=== PATIENT | female | born 1945 | race Caucasian/White ===

== ENCOUNTER 2017-05-10 22:29 | Inpatient (IN) ==
--- NOTE | 2017-05-10 22:52 | Emergency Department Note ---
Disposition Clinical Impression: At risk for self care deficit UTI (urinary tract infection) Qualifiers: Urinary tract infection type: acute cystitis Hematuria presence: with hematuria Qualified Code(s): N30.01 - Acute cystitis with hematuria Disposition: Admitted As Inpatient Condition: Good Time of Disposition: 03:12 General Adult HPI - General Chief complaint: ED General Medical Stated complaint: Possible UTI Time Seen by Provider: 05/10/17 22:41 Nursing Notes Reviewed: Yes Vital Signs Reviewed: Yes - History of Present Illness HPI Narrative: 72yoF arrives via squad with c/o possible UTI and left side weakness. Squad mentions patient had not been ambulatory at scene, they had been called by [facility] fire department. The patient's sons are also here and she reviewed the history. They report there and had contacted one of them when she was unable to reach the patient by phone. The patient's son states that he lives with her , and his weakness had started approximately 4 days ago. Patient's family deny any history of syncopal episodes, fall, trauma, voice changes. - Related Data Allergies Allergy/AdvReac Type Severity Reaction Status Date / Time No Known Allergies Allergy Verified 05/11/17 00:47 All systems ED: reviewed and negative except as stated. Constitutional: Denies: fever, chills Eyes: Denies: eye pain ENT ED: Denies: ear pain Cardiovascular: Denies: chest pain Respiratory: Denies: dyspnea Gastrointestinal: Denies: nausea, vomiting Musculoskeletal: Denies: neck pain Integumentary: Denies: rash Endocrine: Denies: fatigue Hematological/Lymphatic: Denies: easy bleeding Allergic/Immunologic: Denies: facial swelling Physical Exam - General Limitations: altered mental status General appearance: alert, in no apparent distress, anxious - Head Head exam: normocephalic - Eye Eye exam: Present: PERRL, EOMI. Absent: conjunctival injection - ENT ENT exam: normal oropharynx, mucous membranes moist, normal external ear exam - Neck Neck exam: Present: full ROM - Chest Chest inspection: Present: symmetric chest wall rise - Respiratory Respiratory exam: Present: normal lung sounds bilaterally. Absent: respiratory distress - Cardiovascular Cardiovascular exam: Present: regular rate, normal rhythm - Abdominal Exam Abdominal exam: Present: soft, Non-Tender - Rectal Exam Decorating Machine Operator present during exam: Yes (Yeny Garza RN) Rectal exam: Present: other (skin tear wound over left buttock [id number]) - Extremities Exam Extremities exam: Present: normal capillary refill - Back Exam Back exam: Present: full ROM - Neurological Exam Neurological exam: Present: alert, oriented X3, CN II-XII intact - Expanded Neurological Exam Patient oriented to: Present: person, place, time Speech: Present: fluid speech Cranial nerves: EOM function (II, III, IV, ): Normal, facial sensation (V): Normal, facial palsy (VII): Normal, gag reflex (IX): Normal, spinal accessory function (XI): Normal, tongue deviation (XII): Normal Cerebellar function: finger to nose: Normal Motor strength - LUE: 3/5 Motor strength - RUE: 4/5 Motor strength - LLE: 3/5 Motor strength - RLE: 3/5 Sensory exam upper extremity: light touch: Normal, pin prick: Normal Sensory exam lower extremity: light touch: Normal, pin prick: Normal Coma Scale Eye Opening: Spontaneous Coma Scale Motor Response: Obeys Commands Coma Scale Verbal Response: Oriented Coma Scale Total: 15 - Psychiatric Psychiatric exam: Present: normal affect, normal mood - Skin Skin exam: Present: warm, dry, intact, normal color. Absent: rash, cyanosis, diaphoresis Course Course Narrative: 72-year-old female arrives via squad. Squad reports that patient was unable to ambulate, Accu-Chek was within normal limits. Patient seen and examined. She answers only a few questions, however she is alert and oriented 3. Her closer so with feces and urine. She complains of some pain over her buttocks, on examination she does have some ulcerating sores, and excoriations over her right buttock. She also has some noticeable left upper extremity weakness compared to her right. She has no sensory deficits. Her speech appears normal. No facial asymmetry. Onset Workup initiated. - Reevaluation(s) Reevaluation #1: Patient's two sons are now bedside. We did have a discussion with them regarding the patient. Son#1 reports: He was contacted by his aunt who was concerned for the patient when the aunt was unable to reach the patient by phone. So #1 reports that he had called squad. He also mentions that the patient is not herself, she is usually able to walk and talk without difficulty. He mentions he sees her his mom approximately one time a month. Son#2 reports: He lives with patient. He describes patient has typically been self-sufficient and able to care for herself. He does mention the patient has become more confused with decreased activity over the past 4 days. He states the last time he saw his mom well was approximately 4 days ago. He mentions he has not helped with any of her care for activities of daily living despite the fact that he mentions that she has become more tired and confused over this past week. Time: 02:40 Reevaluation #2: Patient's urinalysis does show evidence of urinary tract infection. She also has an elevated creatine kinase and WBC. She has a open wound on her left buttock with some adjacent skin breakdown. No active drainage, no evidence of cellulitis. Discussed patient with Dr. Nath who had face time with patient and agreed with work up and dec to admit for UTI and weakness. Patient was discussed with and accepted by hospitalist Dr. Morales. Time: 02:55 Vital Signs Temperature 98.0 F 05/10/17 22:31 Pulse Rate 103 05/10/17 22:31 Respiratory Rate 16 05/10/17 22:31 Blood Pressure 183/81 05/10/17 22:31 O2 Sat by Pulse Oximetry 97 05/10/17 22:31 Temperature 98.0 F 05/10/17 22:31 Pulse Rate 107 05/11/17 02:49 Respiratory Rate 20 05/11/17 04:03 Blood Pressure 198/89 05/11/17 04:03 O2 Sat by Pulse Oximetry 95 05/11/17 02:49 Oxygen Delivery Oxygen Delivery Room Air Medical Decision Making - [facility] Narrative Medical decision making narrative: Patient presented by squad with reported UTI, recent weakness, and he request activity, left-sided weakness. Family had talked with patient's family and the period that her symptoms were not acute in onset, but had been occurring over the past 4 days. Pt was not a candidate for TPA. On initial presentation, patient looked disheveled, spelled of urine and is covered with feces. I saw no evidence of any acute injury. She did have a open wound on her right buttock , with skin breakdown. Workup showed elevation of white count, urinalysis consistent with urinary tract infection. She also had an elevated CK. She also had notable tenderness over the muscles of her back, and extremities. On exam she did have some possible left upper extremity weakness. NIH 4. Elevated troponin, no acute findings on EKG, and no chest pain. I did discuss patient with Dr. Graham also had the stomach patient and agreed with workup and evaluation. Patient was accepted by hospitalist for further evaluation of UTI and weakness. NIH Stroke Scale/Score (NIHSS) from [employer] on 05/11/2017 All calculations should be rechecked by clinician prior to use RESULT SUMMARY: 4 points NIH Stroke Scale INPUTS: 1A: Level of consciousness > 0 = Alert; keenly responsive 1B: Ask month and age > 0 = Both questions right 1C: 'Blink eyes' & 'squeeze hands' > 0 = Performs both tasks 2: Horizontal extraocular movements > 0 = Normal 3: Visual sanchez > 0 = No visual loss 4: Facial palsy > 0 = Normal symmetry 5A: Left arm motor drift > 1 = Drift, but doesn't hit bed 5B: Right arm motor drift > 0 = No drift for 10 seconds 6A: Left leg motor drift > 3 = No effort against gravity 6B: Right leg motor drift > 0 = No drift for 5 seconds 7: Limb Ataxia > 0 = No ataxia 8: Sensation > 0 = Normal; no sensory loss 9: Language/aphasia > 0 = Normal; no aphasia 10: Dysarthria > 0 = Normal 11: Extinction/inattention > 0 = No abnormality All Lab Results (24 Hours) 05/10/17 05/10/17 05/11/17 Range/Units 02:46 02:46 01:05 WBC (4.3-11.1) K/mcL RBC (3.82-4.97) M/mcL Hgb (11.5-15.4) g/dL Hct (35.3-44.9) % MCV (83.0-100.0) fL MCH (28.0-33.3) pg MCHC (31.6-35.5) g/dL RDW (11.5-14.5) % Plt Count (140-400) K/mcL MPV (9.4-12.4) fL Immature Gran % (0-4) % Seg Neutrophils % % Lymphocytes % % Monocytes % % Eosinophils % % Basophils % % Neutrophils # (1.6-8.9) K/mcL Lymphocytes # (0.6-4.6) K/mcL Monocytes # (0.0-1.3) K/mcL Eosinophils # (0.0-0.6) K/mcL Basophils # (0.0-0.2) K/mcL Immature Plt Fraction (1.1-6.1) % PT (9.4-12.1) Seconds INR APTT (26.0-36.0) Seconds Sodium (136-145) mEq/L Potassium (3.5-4.5) mEq/L Chloride (98-109) mEq/L Carbon Dioxide (19-29) mEq/L BUN (7-20) mg/dL Creatinine (0.57-1.11) mg/dL Est GFR ( Amer) (> 60) Est GFR (Non-Af Amer) (> 60) BUN/Creatinine Ratio (6-26) Glucose (70-99) mg/dL Calculated Osmolality (280-300) Lactic Acid (0.5-2.2) mmol/L Calcium (8.6-10.8) mg/dL Phosphorus (2.3-4.7) mg/dL Magnesium (1.6-2.6) mg/dL Total Bilirubin (0.2-1.2) mg/dL Direct Bilirubin (0.0-0.5) mg/dL Indirect Bilirubin (0.0-1.2) mg/dL AST (5-34) Units/L ALT (0-55) Units/L Alkaline Phosphatase (38-126) Units/L Ammonia (18-72) mcmol/L Creatine Kinase (29-168) Units/L Troponin I 0.04 H* (0-0.03) ng/mL Serum Total Protein (6.0-8.3) g/dL Albumin (3.5-5.0) g/dL Globulin (2.4-3.5) g/dL Albumin/Globulin Ratio (1.1-2.2) Triglycerides (< 150) mg/dL Cholesterol (< 200) mg/dL LDL Cholesterol, Calc (0-99) mg/dL VLDL Cholesterol, Calc (< 31) mg/dL HDL Cholesterol (40-59) mg/dL Cholesterol/HDL Ratio (0-4.9) Urine Color Yellow (Yellow) Urine Clarity Cloudy A (Clear) Urine pH 5.5 (5.0-8.0) pH Units Ur Specific [place] 1.028 H (1.010-1.025) Urine Protein Trace (Neg-Trace) mg/dL Urine Glucose (UA) Normal (Normal) mg/dL Urine Ketones Trace H (Negative) mg/dL Urine Blood Trace H (Negative) Urine Nitrite Positive A (Negative) Urine Bilirubin Negative (Negative) Urine Urobilinogen Normal (Normal) mg/dL Ur Leukocyte Esterase Small H (Negative) Urine Microscopic RBC 0-3 (0-3) per hpf Urine Microscopic WBC 5-15 H (0-3) per hpf Ur Squamous Epith Cells Few (None-Few) per lpf Ur Culture Indicated? YES A (NO) Urine Opiates Screen Negative (Lmnohw=893) ng/mL Ur Barbiturates Screen Negative (Aqckib=575) ng/mL Ur Phencyclidine Scrn Negative (Cutoff=25) ng/mL Ur Amphetamines Screen Negative (Dgrmul=7233) ng/mL U Benzodiazepines Scrn Negative (Alcmuw=539) ng/mL Urine Cocaine Screen Negative (Cutoff= 300) ng/mL U Marijuana (THC) Screen Negative (Cutoff = 50) ng/mL Ethyl Alcohol (0-10) mg/dL 05/11/17 05/11/17 05/11/17 Range/Units 01:05 01:23 01:23 WBC (4.3-11.1) K/mcL RBC (3.82-4.97) M/mcL Hgb (11.5-15.4) g/dL Hct (35.3-44.9) % MCV (83.0-100.0) fL MCH (28.0-33.3) pg MCHC (31.6-35.5) g/dL RDW (11.5-14.5) % Plt Count (140-400) K/mcL MPV (9.4-12.4) fL Immature Gran % (0-4) % Seg Neutrophils % % Lymphocytes % % Monocytes % % Eosinophils % % Basophils % % Neutrophils # (1.6-8.9) K/mcL Lymphocytes # (0.6-4.6) K/mcL Monocytes # (0.0-1.3) K/mcL Eosinophils # (0.0-0.6) K/mcL Basophils # (0.0-0.2) K/mcL Immature Plt Fraction (1.1-6.1) % PT (9.4-12.1) Seconds INR APTT (26.0-36.0) Seconds Sodium (136-145) mEq/L Potassium (3.5-4.5) mEq/L Chloride (98-109) mEq/L Carbon Dioxide (19-29) mEq/L BUN (7-20) mg/dL Creatinine (0.57-1.11) mg/dL Est GFR ( Amer) (> 60) Est GFR (Non-Af Amer) (> 60) BUN/Creatinine Ratio (6-26) Glucose (70-99) mg/dL Calculated Osmolality (280-300) Lactic Acid 1.7 (0.5-2.2) mmol/L Calcium (8.6-10.8) mg/dL Phosphorus (2.3-4.7) mg/dL Magnesium (1.6-2.6) mg/dL Total Bilirubin (0.2-1.2) mg/dL Direct Bilirubin (0.0-0.5) mg/dL Indirect Bilirubin (0.0-1.2) mg/dL AST (5-34) Units/L ALT (0-55) Units/L Alkaline Phosphatase (38-126) Units/L Ammonia 23 (18-72) mcmol/L Creatine Kinase 1558 H (29-168) Units/L Troponin I (0-0.03) ng/mL Serum Total Protein (6.0-8.3) g/dL Albumin (3.5-5.0) g/dL Globulin (2.4-3.5) g/dL Albumin/Globulin Ratio (1.1-2.2) Triglycerides (< 150) mg/dL Cholesterol (< 200) mg/dL LDL Cholesterol, Calc (0-99) mg/dL VLDL Cholesterol, Calc (< 31) mg/dL HDL Cholesterol (40-59) mg/dL Cholesterol/HDL Ratio (0-4.9) Urine Color (Yellow) Urine Clarity (Clear) Urine pH (5.0-8.0) pH Units Ur Specific [place] (1.010-1.025) Urine Protein (Neg-Trace) mg/dL Urine Glucose (UA) (Normal) mg/dL Urine Ketones (Negative) mg/dL Urine Blood (Negative) Urine Nitrite (Negative) Urine Bilirubin (Negative) Urine Urobilinogen (Normal) mg/dL Ur Leukocyte Esterase (Negative) Urine Microscopic RBC (0-3) per hpf Urine Microscopic WBC (0-3) per hpf Ur Squamous Epith Cells (None-Few) per lpf Ur Culture Indicated? (NO) Urine Opiates Screen (Miibnh=782) ng/mL Ur Barbiturates Screen (Rghycr=944) ng/mL Ur Phencyclidine Scrn (Cutoff=25) ng/mL Ur Amphetamines Screen (Cjfebz=4716) ng/mL U Benzodiazepines Scrn (Duizbh=937) ng/mL Urine Cocaine Screen (Cutoff= 300) ng/mL U Marijuana (THC) Screen (Cutoff = 50) ng/mL Ethyl Alcohol (0-10) mg/dL 05/11/17 05/11/17 05/11/17 Range/Units 01:23 01:23 01:23 WBC 17.8 H (4.3-11.1) K/mcL RBC 4.22 (3.82-4.97) M/mcL Hgb 11.1 L (11.5-15.4) g/dL Hct 35.4 (35.3-44.9) % MCV 83.9 (83.0-100.0) fL MCH 26.3 L (28.0-33.3) pg MCHC 31.4 L (31.6-35.5) g/dL RDW 18.1 H (11.5-14.5) % Plt Count 364 (140-400) K/mcL MPV 10.5 (9.4-12.4) fL Immature Gran % 1.1 (0-4) % Seg Neutrophils % 82.7 % Lymphocytes % 7.0 % Monocytes % 8.5 % Eosinophils % 0.2 % Basophils % 0.5 % Neutrophils # 14.7 H (1.6-8.9) K/mcL Lymphocytes # 1.3 (0.6-4.6) K/mcL Monocytes # 1.5 H (0.0-1.3) K/mcL Eosinophils # 0.0 (0.0-0.6) K/mcL Basophils # 0.1 (0.0-0.2) K/mcL Immature Plt Fraction 4.6 (1.1-6.1) % PT 13.5 H (9.4-12.1) Seconds INR 1.2 APTT 25.4 L (26.0-36.0) Seconds Sodium 146 H (136-145) mEq/L Potassium 3.4 L (3.5-4.5) mEq/L Chloride 110 H (98-109) mEq/L Carbon Dioxide 25 (19-29) mEq/L BUN 38 H (7-20) mg/dL Creatinine 1.08 (0.57-1.11) mg/dL Est GFR ( Amer) > 60 (> 60) Est GFR (Non-Af Amer) 50 L (> 60) BUN/Creatinine Ratio 35 H (6-26) Glucose 138 H (70-99) mg/dL Calculated Osmolality 313 H (280-300) Lactic Acid (0.5-2.2) mmol/L Calcium 9.8 (8.6-10.8) mg/dL Phosphorus (2.3-4.7) mg/dL Magnesium (1.6-2.6) mg/dL Total Bilirubin 0.9 (0.2-1.2) mg/dL Direct Bilirubin 0.4 (0.0-0.5) mg/dL Indirect Bilirubin 0.5 (0.0-1.2) mg/dL AST 49 H (5-34) Units/L ALT 31 (0-55) Units/L Alkaline Phosphatase 73 (38-126) Units/L Ammonia (18-72) mcmol/L Creatine Kinase (29-168) Units/L Troponin I (0-0.03) ng/mL Serum Total Protein 8.1 (6.0-8.3) g/dL Albumin 3.6 (3.5-5.0) g/dL Globulin 4.5 H (2.4-3.5) g/dL Albumin/Globulin Ratio 0.8 L (1.1-2.2) Triglycerides (< 150) mg/dL Cholesterol (< 200) mg/dL LDL Cholesterol, Calc (0-99) mg/dL VLDL Cholesterol, Calc (< 31) mg/dL HDL Cholesterol (40-59) mg/dL Cholesterol/HDL Ratio (0-4.9) Urine Color (Yellow) Urine Clarity (Clear) Urine pH (5.0-8.0) pH Units Ur Specific [place] (1.010-1.025) Urine Protein (Neg-Trace) mg/dL Urine Glucose (UA) (Normal) mg/dL Urine Ketones (Negative) mg/dL Urine Blood (Negative) Urine Nitrite (Negative) Urine Bilirubin (Negative) Urine Urobilinogen (Normal) mg/dL Ur Leukocyte Esterase (Negative) Urine Microscopic RBC (0-3) per hpf Urine Microscopic WBC (0-3) per hpf Ur Squamous Epith Cells (None-Few) per lpf Ur Culture Indicated? (NO) Urine Opiates Screen (Azvdxc=790) ng/mL Ur Barbiturates Screen (Yxwuit=454) ng/mL Ur Phencyclidine Scrn (Cutoff=25) ng/mL Ur Amphetamines Screen (Zckbhy=4632) ng/mL U Benzodiazepines Scrn (Bagvrv=483) ng/mL Urine Cocaine Screen (Cutoff= 300) ng/mL U Marijuana (THC) Screen (Cutoff = 50) ng/mL Ethyl Alcohol < 10 (0-10) mg/dL 05/11/17 05/11/17 Range/Units 03:24 Unknown WBC (4.3-11.1) K/mcL RBC (3.82-4.97) M/mcL Hgb (11.5-15.4) g/dL Hct (35.3-44.9) % MCV (83.0-100.0) fL MCH (28.0-33.3) pg MCHC (31.6-35.5) g/dL RDW (11.5-14.5) % Plt Count (140-400) K/mcL MPV (9.4-12.4) fL Immature Gran % (0-4) % Seg Neutrophils % % Lymphocytes % % Monocytes % % Eosinophils % % Basophils % % Neutrophils # (1.6-8.9) K/mcL Lymphocytes # (0.6-4.6) K/mcL Monocytes # (0.0-1.3) K/mcL Eosinophils # (0.0-0.6) K/mcL Basophils # (0.0-0.2) K/mcL Immature Plt Fraction (1.1-6.1) % PT (9.4-12.1) Seconds INR APTT (26.0-36.0) Seconds Sodium (136-145) mEq/L Potassium (3.5-4.5) mEq/L Chloride (98-109) mEq/L Carbon Dioxide (19-29) mEq/L BUN (7-20) mg/dL Creatinine (0.57-1.11) mg/dL Est GFR ( Amer) (> 60) Est GFR (Non-Af Amer) (> 60) BUN/Creatinine Ratio (6-26) Glucose (70-99) mg/dL Calculated Osmolality (280-300) Lactic Acid 2.4 H (0.5-2.2) mmol/L Calcium (8.6-10.8) mg/dL Phosphorus 3.6 (2.3-4.7) mg/dL Magnesium 2.4 (1.6-2.6) mg/dL Total Bilirubin (0.2-1.2) mg/dL Direct Bilirubin (0.0-0.5) mg/dL Indirect Bilirubin (0.0-1.2) mg/dL AST (5-34) Units/L ALT (0-55) Units/L Alkaline Phosphatase (38-126) Units/L Ammonia (18-72) mcmol/L Creatine Kinase (29-168) Units/L Troponin I (0-0.03) ng/mL Serum Total Protein (6.0-8.3) g/dL Albumin (3.5-5.0) g/dL Globulin (2.4-3.5) g/dL Albumin/Globulin Ratio (1.1-2.2) Triglycerides 105 (< 150) mg/dL Cholesterol 208 H (< 200) mg/dL LDL Cholesterol, Calc 137 H (0-99) mg/dL VLDL Cholesterol, Calc 21 (< 31) mg/dL HDL Cholesterol 50 (40-59) mg/dL Cholesterol/HDL Ratio 4.2 (0-4.9) Urine Color (Yellow) Urine Clarity (Clear) Urine pH (5.0-8.0) pH Units Ur Specific [place] (1.010-1.025) Urine Protein (Neg-Trace) mg/dL Urine Glucose (UA) (Normal) mg/dL Urine Ketones (Negative) mg/dL Urine Blood (Negative) Urine Nitrite (Negative) Urine Bilirubin (Negative) Urine Urobilinogen (Normal) mg/dL Ur Leukocyte Esterase (Negative) Urine Microscopic RBC (0-3) per hpf Urine Microscopic WBC (0-3) per hpf Ur Squamous Epith Cells (None-Few) per lpf Ur Culture Indicated? (NO) Urine Opiates Screen (Hmzfex=846) ng/mL Ur Barbiturates Screen (Ttjhke=642) ng/mL Ur Phencyclidine Scrn (Cutoff=25) ng/mL Ur Amphetamines Screen (Fdhxxd=5763) ng/mL U Benzodiazepines Scrn (Sqnvbp=367) ng/mL Urine Cocaine Screen (Cutoff= 300) ng/mL U Marijuana (THC) Screen (Cutoff = 50) ng/mL Ethyl Alcohol (0-10) mg/dL Chest X-Ray 05/10/17 22:43 IMPRESSION: Elevation or eventration of right hemidiaphragm is present. Borderline cardiomegaly. Otherwise no acute cardiopulmonary findings. D/ / Les Ahn MD / Les Ahn MD Interpreting Provider: Les Ahn MD Head CT 05/11/17 02:28 IMPRESSION: 1. No acute intracranial abnormality. 2. 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 3. Severe chronic microvascular white matter ischemic disease. D/ / Tristin Dejesus MD / Tristin Dejesus MD Interpreting Provider: Tristin Dejesus MD - Lab Data Lab results reviewed: Yes I reviewed the patient's lab results. Result diagrams: 05/11/17 01:23 05/11/17 01:23 Lab Results 05/10/17 05/10/17 05/11/17 Range/Units 02:46 02:46 01:05 WBC (4.3-11.1) K/mcL RBC (3.82-4.97) M/mcL Hgb (11.5-15.4) g/dL Hct (35.3-44.9) % MCV (83.0-100.0) fL MCH (28.0-33.3) pg MCHC (31.6-35.5) g/dL RDW (11.5-14.5) % Plt Count (140-400) K/mcL MPV (9.4-12.4) fL Immature Gran % (0-4) % Seg Neutrophils % % Lymphocytes % % Monocytes % % Eosinophils % % Basophils % % Neutrophils # (1.6-8.9) K/mcL Lymphocytes # (0.6-4.6) K/mcL Monocytes # (0.0-1.3) K/mcL Eosinophils # (0.0-0.6) K/mcL Basophils # (0.0-0.2) K/mcL Immature Plt Fraction (1.1-6.1) % PT (9.4-12.1) Seconds INR APTT (26.0-36.0) Seconds Sodium (136-145) mEq/L Potassium (3.5-4.5) mEq/L Chloride (98-109) mEq/L Carbon Dioxide (19-29) mEq/L BUN (7-20) mg/dL Creatinine (0.57-1.11) mg/dL Est GFR ( Amer) (> 60) Est GFR (Non-Af Amer) (> 60) BUN/Creatinine Ratio (6-26) Glucose (70-99) mg/dL Calculated Osmolality (280-300) Lactic Acid (0.5-2.2) mmol/L Calcium (8.6-10.8) mg/dL Total Bilirubin (0.2-1.2) mg/dL Direct Bilirubin (0.0-0.5) mg/dL Indirect Bilirubin (0.0-1.2) mg/dL AST (5-34) Units/L ALT (0-55) Units/L Alkaline Phosphatase (38-126) Units/L Ammonia (18-72) mcmol/L Creatine Kinase (29-168) Units/L Troponin I 0.04 H* (0-0.03) ng/mL Serum Total Protein (6.0-8.3) g/dL Albumin (3.5-5.0) g/dL Globulin (2.4-3.5) g/dL Albumin/Globulin Ratio (1.1-2.2) Urine Color Yellow (Yellow) Urine Clarity Cloudy A (Clear) Urine pH 5.5 (5.0-8.0) pH Units Ur Specific [place] 1.028 H (1.010-1.025) Urine Protein Trace (Neg-Trace) mg/dL Urine Glucose (UA) Normal (Normal) mg/dL Urine Ketones Trace H (Negative) mg/dL Urine Blood Trace H (Negative) Urine Nitrite Positive A (Negative) Urine Bilirubin Negative (Negative) Urine Urobilinogen Normal (Normal) mg/dL Ur Leukocyte Esterase Small H (Negative) Urine Microscopic RBC 0-3 (0-3) per hpf Urine Microscopic WBC 5-15 H (0-3) per hpf Ur Squamous Epith Cells Few (None-Few) per lpf Ur Culture Indicated? YES A (NO) Urine Opiates Screen Negative (Oatbkv=383) ng/mL Ur Barbiturates Screen Negative (Ntxnor=974) ng/mL Ur Phencyclidine Scrn Negative (Cutoff=25) ng/mL Ur Amphetamines Screen Negative (Iazggy=6236) ng/mL U Benzodiazepines Scrn Negative (Qgepma=964) ng/mL Urine Cocaine Screen Negative (Cutoff= 300) ng/mL U Marijuana (THC) Screen Negative (Cutoff = 50) ng/mL Ethyl Alcohol (0-10) mg/dL 05/11/17 05/11/17 05/11/17 Range/Units 01:05 01:23 01:23 WBC (4.3-11.1) K/mcL RBC (3.82-4.97) M/mcL Hgb (11.5-15.4) g/dL Hct (35.3-44.9) % MCV (83.0-100.0) fL MCH (28.0-33.3) pg MCHC (31.6-35.5) g/dL RDW (11.5-14.5) % Plt Count (140-400) K/mcL MPV (9.4-12.4) fL Immature Gran % (0-4) % Seg Neutrophils % % Lymphocytes % % Monocytes % % Eosinophils % % Basophils % % Neutrophils # (1.6-8.9) K/mcL Lymphocytes # (0.6-4.6) K/mcL Monocytes # (0.0-1.3) K/mcL Eosinophils # (0.0-0.6) K/mcL Basophils # (0.0-0.2) K/mcL Immature Plt Fraction (1.1-6.1) % PT (9.4-12.1) Seconds INR APTT (26.0-36.0) Seconds Sodium (136-145) mEq/L Potassium (3.5-4.5) mEq/L Chloride (98-109) mEq/L Carbon Dioxide (19-29) mEq/L BUN (7-20) mg/dL Creatinine (0.57-1.11) mg/dL Est GFR ( Amer) (> 60) Est GFR (Non-Af Amer) (> 60) BUN/Creatinine Ratio (6-26) Glucose (70-99) mg/dL Calculated Osmolality (280-300) Lactic Acid 1.7 (0.5-2.2) mmol/L Calcium (8.6-10.8) mg/dL Total Bilirubin (0.2-1.2) mg/dL Direct Bilirubin (0.0-0.5) mg/dL Indirect Bilirubin (0.0-1.2) mg/dL AST (5-34) Units/L ALT (0-55) Units/L Alkaline Phosphatase (38-126) Units/L Ammonia 23 (18-72) mcmol/L Creatine Kinase 1558 H (29-168) Units/L Troponin I (0-0.03) ng/mL Serum Total Protein (6.0-8.3) g/dL Albumin (3.5-5.0) g/dL Globulin (2.4-3.5) g/dL Albumin/Globulin Ratio (1.1-2.2) Urine Color (Yellow) Urine Clarity (Clear) Urine pH (5.0-8.0) pH Units Ur Specific [place] (1.010-1.025) Urine Protein (Neg-Trace) mg/dL Urine Glucose (UA) (Normal) mg/dL Urine Ketones (Negative) mg/dL Urine Blood (Negative) Urine Nitrite (Negative) Urine Bilirubin (Negative) Urine Urobilinogen (Normal) mg/dL Ur Leukocyte Esterase (Negative) Urine Microscopic RBC (0-3) per hpf Urine Microscopic WBC (0-3) per hpf Ur Squamous Epith Cells (None-Few) per lpf Ur Culture Indicated? (NO) Urine Opiates Screen (Gsyfjh=196) ng/mL Ur Barbiturates Screen (Uutwep=132) ng/mL Ur Phencyclidine Scrn (Cutoff=25) ng/mL Ur Amphetamines Screen (Pgouej=0900) ng/mL U Benzodiazepines Scrn (Utalwr=050) ng/mL Urine Cocaine Screen (Cutoff= 300) ng/mL U Marijuana (THC) Screen (Cutoff = 50) ng/mL Ethyl Alcohol (0-10) mg/dL 05/11/17 05/11/17 05/11/17 Range/Units 01:23 01:23 01:23 WBC 17.8 H (4.3-11.1) K/mcL RBC 4.22 (3.82-4.97) M/mcL Hgb 11.1 L (11.5-15.4) g/dL Hct 35.4 (35.3-44.9) % MCV 83.9 (83.0-100.0) fL MCH 26.3 L (28.0-33.3) pg MCHC 31.4 L (31.6-35.5) g/dL RDW 18.1 H (11.5-14.5) % Plt Count 364 (140-400) K/mcL MPV 10.5 (9.4-12.4) fL Immature Gran % 1.1 (0-4) % Seg Neutrophils % 82.7 % Lymphocytes % 7.0 % Monocytes % 8.5 % Eosinophils % 0.2 % Basophils % 0.5 % Neutrophils # 14.7 H (1.6-8.9) K/mcL Lymphocytes # 1.3 (0.6-4.6) K/mcL Monocytes # 1.5 H (0.0-1.3) K/mcL Eosinophils # 0.0 (0.0-0.6) K/mcL Basophils # 0.1 (0.0-0.2) K/mcL Immature Plt Fraction 4.6 (1.1-6.1) % PT 13.5 H (9.4-12.1) Seconds INR 1.2 APTT 25.4 L (26.0-36.0) Seconds Sodium 146 H (136-145) mEq/L Potassium 3.4 L (3.5-4.5) mEq/L Chloride 110 H (98-109) mEq/L Carbon Dioxide 25 (19-29) mEq/L BUN 38 H (7-20) mg/dL Creatinine 1.08 (0.57-1.11) mg/dL Est GFR ( Amer) > 60 (> 60) Est GFR (Non-Af Amer) 50 L (> 60) BUN/Creatinine Ratio 35 H (6-26) Glucose 138 H (70-99) mg/dL Calculated Osmolality 313 H (280-300) Lactic Acid (0.5-2.2) mmol/L Calcium 9.8 (8.6-10.8) mg/dL Total Bilirubin 0.9 (0.2-1.2) mg/dL Direct Bilirubin 0.4 (0.0-0.5) mg/dL Indirect Bilirubin 0.5 (0.0-1.2) mg/dL AST 49 H (5-34) Units/L ALT 31 (0-55) Units/L Alkaline Phosphatase 73 (38-126) Units/L Ammonia (18-72) mcmol/L Creatine Kinase (29-168) Units/L Troponin I (0-0.03) ng/mL Serum Total Protein 8.1 (6.0-8.3) g/dL Albumin 3.6 (3.5-5.0) g/dL Globulin 4.5 H (2.4-3.5) g/dL Albumin/Globulin Ratio 0.8 L (1.1-2.2) Urine Color (Yellow) Urine Clarity (Clear) Urine pH (5.0-8.0) pH Units Ur Specific [place] (1.010-1.025) Urine Protein (Neg-Trace) mg/dL Urine Glucose (UA) (Normal) mg/dL Urine Ketones (Negative) mg/dL Urine Blood (Negative) Urine Nitrite (Negative) Urine Bilirubin (Negative) Urine Urobilinogen (Normal) mg/dL Ur Leukocyte Esterase (Negative) Urine Microscopic RBC (0-3) per hpf Urine Microscopic WBC (0-3) per hpf Ur Squamous Epith Cells (None-Few) per lpf Ur Culture Indicated? (NO) Urine Opiates Screen (Hywbvi=987) ng/mL Ur Barbiturates Screen (Mbmfgn=502) ng/mL Ur Phencyclidine Scrn (Cutoff=25) ng/mL Ur Amphetamines Screen (Jgnhtf=2238) ng/mL U Benzodiazepines Scrn (Qnsydv=252) ng/mL Urine Cocaine Screen (Cutoff= 300) ng/mL U Marijuana (THC) Screen (Cutoff = 50) ng/mL Ethyl Alcohol < 10 (0-10) mg/dL 05/11/17 Range/Units 03:24 WBC (4.3-11.1) K/mcL RBC (3.82-4.97) M/mcL Hgb (11.5-15.4) g/dL Hct (35.3-44.9) % MCV (83.0-100.0) fL MCH (28.0-33.3) pg MCHC (31.6-35.5) g/dL RDW (11.5-14.5) % Plt Count (140-400) K/mcL MPV (9.4-12.4) fL Immature Gran % (0-4) % Seg Neutrophils % % Lymphocytes % % Monocytes % % Eosinophils % % Basophils % % Neutrophils # (1.6-8.9) K/mcL Lymphocytes # (0.6-4.6) K/mcL Monocytes # (0.0-1.3) K/mcL Eosinophils # (0.0-0.6) K/mcL Basophils # (0.0-0.2) K/mcL Immature Plt Fraction (1.1-6.1) % PT (9.4-12.1) Seconds INR APTT (26.0-36.0) Seconds Sodium (136-145) mEq/L Potassium (3.5-4.5) mEq/L Chloride (98-109) mEq/L Carbon Dioxide (19-29) mEq/L BUN (7-20) mg/dL Creatinine (0.57-1.11) mg/dL Est GFR ( Amer) (> 60) Est GFR (Non-Af Amer) (> 60) BUN/Creatinine Ratio (6-26) Glucose (70-99) mg/dL Calculated Osmolality (280-300) Lactic Acid 2.4 H (0.5-2.2) mmol/L Calcium (8.6-10.8) mg/dL Total Bilirubin (0.2-1.2) mg/dL Direct Bilirubin (0.0-0.5) mg/dL Indirect Bilirubin (0.0-1.2) mg/dL AST (5-34) Units/L ALT (0-55) Units/L Alkaline Phosphatase (38-126) Units/L Ammonia (18-72) mcmol/L Creatine Kinase (29-168) Units/L Troponin I (0-0.03) ng/mL Serum Total Protein (6.0-8.3) g/dL Albumin (3.5-5.0) g/dL Globulin (2.4-3.5) g/dL Albumin/Globulin Ratio (1.1-2.2) Urine Color (Yellow) Urine Clarity (Clear) Urine pH (5.0-8.0) pH Units Ur Specific [place] (1.010-1.025) Urine Protein (Neg-Trace) mg/dL Urine Glucose (UA) (Normal) mg/dL Urine Ketones (Negative) mg/dL Urine Blood (Negative) Urine Nitrite (Negative) Urine Bilirubin (Negative) Urine Urobilinogen (Normal) mg/dL Ur Leukocyte Esterase (Negative) Urine Microscopic RBC (0-3) per hpf Urine Microscopic WBC (0-3) per hpf Ur Squamous Epith Cells (None-Few) per lpf Ur Culture Indicated? (NO) Urine Opiates Screen (Ydbhdn=687) ng/mL Ur Barbiturates Screen (Hunlnu=744) ng/mL Ur Phencyclidine Scrn (Cutoff=25) ng/mL Ur Amphetamines Screen (Lpkclj=1434) ng/mL U Benzodiazepines Scrn (Gjipel=217) ng/mL Urine Cocaine Screen (Cutoff= 300) ng/mL U Marijuana (THC) Screen (Cutoff = 50) ng/mL Ethyl Alcohol (0-10) mg/dL - Radiology Data Radiology results reviewed: Yes I reviewed the patient's radiology results. - EKG Data EKG #1 EKG attestation: Yes I reviewed and interpreted this EKG. EKG results narrative: Sinus tach with occasional S VPCs, ventricular rate 104, no acute ST changes Attestation Statement - Attestation Attestation: I examined this patient and my medical decision-making was reviewed with the Resident Physician. I agree with the documented findings, disposition and treatment plan as described except to the extent set forth below. Patient to ED with weakness. Family called because they were concerned because she did not been out of bed in several days. She lives with her son. Chest some weakness in one of her upper extremities. Unclear when this started. Also concerned she may have a UTI. Exam shows a weakness in the left abdomen soft. She is awake and alert. Plan. Patient is septic workup. Elevated white blood cell count. Her renal failure is chronic. Antibiotics and admit.
[2017-05-10 23:24] LABS: Amphetamine Screen,Urine Negative ng/mL (Cutoff=1000); Barbiturate Screen,Urine Negative ng/mL (Cutoff=200); Benzodiazepines Screen,Urine Negative ng/mL (Cutoff=200); Cannabinoid Screen,Urine Negative ng/mL (Cutoff = 50); Cocaine Screen,Urine Negative ng/mL (Cutoff= 300); Opiate Screen,Urine Negative ng/mL (Cutoff=300); Phencyclidine Screen,Urine Negative ng/mL (Cutoff=25)
[2017-05-11 00:01] LABS: Bilirubin,Urine Negative (Negative); Blood,Urine Trace (Negative); Clarity,Urine Cloudy (Clear); Color,Urine Yellow (Yellow); Glucose,Urine (UA) Normal (Normal); Ketones,Urine Trace mg/dL (Negative); Leukocyte Esterase,Urine Small (Negative); Nitrite,Urine Positive (Negative); PH,Urine 5.5 pH Units (5.0-8.0); Protein,Urine Trace mg/dL (Neg-Trace); Specific Gravity,Urine 1.028 (1.010-1.025); Urobilinogen,Urine Normal (Normal)
[2017-05-11 00:19] LABS: RBC,Urine 0-3 per hpf (0-3); Squamous Epithelial Cell,Urine Few per lpf (None-Few)
[2017-05-11 01:30] LABS: Basophils # 0.1 K/mcL (0.0-0.2); Basophils % 0.5 %; Eosinophils % 0.2 %; Hematocrit 35.4 % (35.3-44.9); Hemoglobin 11.1 g/dL (11.5-15.4); Immature Granulocytes % 1.1 % (0-4); Immature Platelets 4.6 % (1.1-6.1); Lymphocytes # 1.3 K/mcL (0.6-4.6); Mean Corpuscular HGB Conc 31.4 g/dL (31.6-35.5); Mean Corpuscular Hemoglobin 26.3 pg (28.0-33.3); Mean Corpuscular Volume 83.9 fL (83.0-100.0); Mean Platelet Volume 10.5 fL (9.4-12.4); Monocytes # 1.5 K/mcL (0.0-1.3); Monocytes % 8.5 %; Neutrophils # 14.7 K/mcL (1.6-8.9); Platelet Count 364 K/mcL (140-400); Red Blood Count 4.22 M/mcL (3.82-4.97); Red Cell Distribution Width 18.1 % (11.5-14.5); Segmented Neutrophils % 82.7 %
[2017-05-11 01:38] LABS: INR 1.2; Prothrombin Time 13.5 Seconds (9.4-12.1)
[2017-05-11 01:40] LABS: Activated Partial Thrombo Time 25.4 Seconds (26.0-36.0)
[2017-05-11 01:42] LABS: Alanine Aminotransferase 31 Units/L (0-55); Albumin 3.6 g/dL (3.5-5.0); Albumin/Globulin Ratio 0.8 (1.1-2.2); Alkaline Phosphatase 73 Units/L (38-126); Aspartate Amino Transferase 49 Units/L (5-34); BUN/Creatinine Ratio 35 (6-26); Bilirubin,Direct 0.4 mg/dL (0.0-0.5); Bilirubin,Indirect 0.5 mg/dL (0.0-1.2); Bilirubin,Total 0.9 mg/dL (0.2-1.2); Blood Urea Nitrogen 38 mg/dL (7-20); Calcium 9.8 mg/dL (8.6-10.8); Carbon Dioxide 25 mEq/L (19-29); Chloride 110 mEq/L (98-109); Globulin 4.5 g/dL (2.4-3.5); Glucose 138 mg/dL (70-99); Osmolality,Calculated 313 (280-300); Potassium 3.4 mEq/L (3.5-4.5); Sodium 146 mEq/L (136-145); Total Protein 8.1 g/dL (6.0-8.3); eGFR For African Americans > 60 (> 60); eGFR For Non-African Americans 50 (> 60)
[2017-05-11 01:43] LABS: Ethanol < 10 mg/dL (0-10)
[2017-05-11] MEDS: 0.9 % Sodium Chloride 1,000 ML IVC SCH ×4 (02:56→23:40)
[2017-05-11] MEDS ORDERED: Ondansetron 4 MG/2 ML VIAL IVP PRN (03:52)
[2017-05-11] MEDS ORDERED: Acetaminophen 325 MG TABLET PO PRN (03:52)
[2017-05-11] MEDS ORDERED: Naloxone 0.4 MG/ML INJ IVP PRN (03:52)
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
[2017-05-11] MEDS ORDERED: 0.9 % Sodium Chloride 500 ML IVC ONE (04:05)
[2017-05-11 04:25] LABS: Chol/HDL Ratio 4.2 (0-4.9); Magnesium 2.4 mg/dL (1.6-2.6); Phosphorous 3.6 mg/dL (2.3-4.7)
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
[2017-05-11] MEDS ORDERED: *HR* Heparin 5,000 UNIT/ML VIAL SQ SCH (06:00)
[2017-05-11] MEDS: Pantoprazole 40 MG VIAL IVP SCH (06:21)
--- NOTE | 2017-05-11 14:04 | Neurology - Consult Note ---
Date of Encounter: 05/11/17 Time of Encounter: 13:59 Assessment and Plan (1) Acute CVA (cerebrovascular accident) Current Visit: Yes Status: Acute 72 year old woman with no known PMH who developed acute onset of left sided weankness, consistent with the finding of right SHANA territory infarct, although the pattern of ischemic infarct suggest also watershed infarct. She likely also has other risk factors for CVA including HTN, Hyperlipidemia, obesity and possible untreated sleep as well. Will complete full stroke work up including CTA of neck and brain, lipid profile, and statin therapy, echocardiogrpahy. Agree with Aspirin rectal until swallow test is done. Treat UTI and other medical conditions. History of Present Illness Chief complaint: left sided weakness HPI: Ms. Franks is a 72 year old female with no known PMH who developed few days of left weakness and altered mental status. She lives with her son, who is currently not available for interview. Per medical records, she has developed left sided weakness, speech difficulty for about 3-4 days prior to this admission. At the ER, she was found to have significant left sided weakness, but apparently she is not a candidate for tPA thrombolysis. Has slurred speech as well. CT of head showed acute intracranial abnormality. MRI of brain showed: MR/MR head/brain wo con IMPRESSION: Acute right anterior cerebral artery territory infarct involving the right cingulate gyrus and subcortical and deep white matter of the medial right frontal lobe. Patient currently is still having difficulty speaking. follows simple commands. Sister relates that the patient does not see doctors. Not sure what medical problems she has. She is apparently morbidly obese. last time when she saw a doctor was when she gave her baby, sister reports. Past Med Surg Social Fam HX - Past Medical History Medical history: no medical history Psychiatric history: no psych history - Past Surgical History Surgical History: cholecystectomy, herniorrhaphy - Social History Smoking Status: Never smoker Smokeless Tobacco Status: No Alcohol use: none Drug use: none - Family History Mother History Unknown: Yes Medications and Allergies 3 Allergy/AdvReac Type Severity Reaction Status Date / Time No Known Allergies Allergy Verified 05/11/17 00:47 All Systems: A 10-system review of systems was performed and is negative for pertinent findings except as documented above in the HPI. Physical Examination - Vital Signs Vital Signs: Initial Vital Signs Temp Pulse Resp BP Pulse Ox 98.0 F 103 16 183/81 97 05/10/17 22:31 05/10/17 22:31 05/10/17 22:31 05/10/17 22:31 05/10/17 22:31 - Constitutional General appearance: chronically ill - Neurologic Sensorimotor examination: other (Unable to assess due to speech difficulty) Detailed motor examination: other (Left paresis noted, leg more than the arm) Motor examination - right side: 55: deltoids, biceps, triceps, wrist flexion, wrist extension, design technician, hip flexors, tibialis Anterior, quadriceps, toe extension (EHL), plantarflexion Motor examination - left side: 5: deltoids, biceps, triceps, wrist flexion, wrist extension, hip flexors, design technician, quadriceps, tibialis Anterior, toe extension (EHL) Detailed sensory examination: other (Unable to assess due to difficulty in her speech) Reflex and gait examination: other (None) Mental Status Examination: awake, alert, follows commands appropriately, answers questions appropriately, opens eyes to voice, opens eyes to noxious stimulation, makes eye contact, follows simple commands, localizes noxious stimulation, expressive aphasia Cranial nerve examination: PERRL, EOMI, visual sanchez intact, corneal reflexes brisk symmetrically, sensory to face intact, mastication intact, no facial asymmetry is present, no dysarthria, hearing is intact symmetrically, gag reflex intact, flexes SCM and trapezius muscles symmetrically with full power, tongue protrudes midline Results - Laboratory Findings CBC and BMP: 05/11/17 01:23 05/11/17 01:23 Abnormal lab findings: Abnormal lab results WBC 17.8 K/mcL (4.3-11.1) H 05/11/17 01:23 Hgb 11.1 g/dL (11.5-15.4) L 05/11/17 01:23 MCH 26.3 pg (28.0-33.3) L 05/11/17 01:23 MCHC 31.4 g/dL (31.6-35.5) L 05/11/17 01:23 RDW 18.1 % (11.5-14.5) H 05/11/17 01:23 Neutrophils # 14.7 K/mcL (1.6-8.9) H 05/11/17 01:23 Monocytes # 1.5 K/mcL (0.0-1.3) H 05/11/17 01:23 PT 13.5 Seconds (9.4-12.1) H 05/11/17 01:23 APTT 25.4 Seconds (26.0-36.0) L 05/11/17 01:23 Sodium 146 mEq/L (136-145) H 05/11/17 01:23 Potassium 3.4 mEq/L (3.5-4.5) L 05/11/17 01:23 Chloride 110 mEq/L (98-109) H 05/11/17 01:23 BUN 38 mg/dL (7-20) H 05/11/17 01:23 Est GFR (Non-Af Amer) 50 (> 60) L 05/11/17 01:23 BUN/Creatinine Ratio 35 (6-26) H 05/11/17 01:23 Glucose 138 mg/dL (70-99) H 05/11/17 01:23 POC Glucose 117 (58-89) H 05/11/17 11:42 Calculated Osmolality 313 (280-300) H 05/11/17 01:23 Lactic Acid 2.4 mmol/L (0.5-2.2) H 05/11/17 03:24 AST 49 Units/L (5-34) H 05/11/17 01:23 Creatine Kinase 1558 Units/L (29-168) H 05/11/17 01:23 Troponin I 0.04 ng/mL (0-0.03) H* 05/11/17 01:05 Globulin 4.5 g/dL (2.4-3.5) H 05/11/17 01:23 Albumin/Globulin Ratio 0.8 (1.1-2.2) L 05/11/17 01:23 Cholesterol 208 mg/dL (< 200) H 05/11/17 Unknown LDL Cholesterol, Calc 137 mg/dL (0-99) H 05/11/17 Unknown Urine Clarity Cloudy (Clear) A 05/10/17 02:46 Ur Specific [place] 1.028 (1.010-1.025) H 05/10/17 02:46 Urine Ketones Trace mg/dL (Negative) H 05/10/17 02:46 Urine Blood Trace (Negative) H 05/10/17 02:46 Urine Nitrite Positive (Negative) A 05/10/17 02:46 Ur Leukocyte Esterase Small (Negative) H 05/10/17 02:46 Urine Microscopic WBC 5-15 per hpf (0-3) H 05/10/17 02:46 Ur Culture Indicated? YES (NO) A 05/10/17 02:46 Consult Discharge Plan - Plan Referrals: NONE,PCP [Primary Care Provider] -
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
[2017-05-11] MEDS: *HR* Heparin 5,000 UNIT/ML VIAL SQ SCH (16:41)
[2017-05-12] MEDS: *HR* Heparin 5,000 UNIT/ML VIAL SQ SCH ×2 (05:53→16:55)
[2017-05-12] MEDS: Pantoprazole 40 MG VIAL IVP SCH (05:53)
[2017-05-12] MEDS: 0.9 % Sodium Chloride 1,000 ML IVC SCH ×2 (06:56→19:52)
[2017-05-12 07:14] LABS: INR 1.3; Prothrombin Time 14.5 Seconds (9.4-12.1)
[2017-05-12 07:47] LABS: BUN/Creatinine Ratio 30 (6-26); Calcium 8.4 mg/dL (8.6-10.8); Carbon Dioxide 24 mEq/L (19-29); Chloride 117 mEq/L (98-109); Glucose 92 mg/dL (70-99); Osmolality,Calculated 308 (280-300); Potassium 3.2 mEq/L (3.5-4.5); Sodium 147 mEq/L (136-145); eGFR For African Americans > 60 (> 60); eGFR For Non-African Americans > 60 (> 60)
[2017-05-12 07:48] LABS: Blood Urea Nitrogen 25 mg/dL (7-20)
[2017-05-12 08:59] LABS: Mean Platelet Volume 11.2 fL (9.4-12.4)
[2017-05-12] MEDS ORDERED: Vancomycin 2,000 MG in D5% in Water 250 ML IVPB SCH (09:00)
[2017-05-12 09:02] LABS: Immature Platelets 4.1 % (1.1-6.1)
[2017-05-12 09:26] LABS: Basophils # 0.1 K/mcL (0.0-0.2); Basophils % 0.6 %; Eosinophils # 0.3 K/mcL (0.0-0.6); Eosinophils % 2.5 %; Hematocrit 30.7 % (35.3-44.9); Hemoglobin 9.2 g/dL (11.5-15.4); Immature Granulocytes % 0.9 % (0-4); Lymphocytes % 15.4 %; Mean Corpuscular Hemoglobin 24.6 pg (28.0-33.3); Monocytes # 1.1 K/mcL (0.0-1.3); Monocytes % 9.6 %; Platelet Count 264 K/mcL (140-400); Red Blood Count 3.74 M/mcL (3.82-4.97); Red Cell Distribution Width 15.8 % (11.5-14.5)
--- NOTE | 2017-05-12 09:35 | Internal Med Progress Note ---
<Romeo Singer - Last Filed: 05/12/17 10:31> Date of Encounter: 05/12/17 Time of Encounter: 09:32 - Assessment and plan (1) Acute CVA (cerebrovascular accident) Current Visit: Yes Status: Acute Assessment and plan: - Presents with altered mental status as well as presumed new onset left-sided weakness of upper and lower extremity - MRI performed revealed acute right anterior cerebral artery territory infarct involving the right cingulate gyrus and subcortical and deep white matter of the medial right frontal lobe - Neurology is following, appreciate recommendations - Recommend full stroke workup involving CTA of neck and brain, lipid profile, statin therapy, echocardiography. Aspirin, Plavix once able to take by mouth meds - Rectal aspirin until patient is able to swallow, heparin twice a day - CTAs today as GFR is >60 - Echocardiogram showed EF of 50-55% without evidence of shunts due to poor image quality - Carotid ultrasound preliminary result appears to show nonstenotic plaque on the right and a 60-79% stenosis of the proximal left proximal ICA - Serial NIH scales. Unsure of timeframe given poor historian, we are unable to give thrombolysis at this time (2) Sepsis Current Visit: Yes Status: Resolved Assessment and plan: - Presented with heart rate of 103, respiratory rate 20, WBC of 17.8 - Suspected source of urinary tract infection - Lactic acid most recently 2.4 Possibly due to hypoperfusion - Blood cultures no growth thus far, urine culture growing Staphylococcus aureus , will start vancomycin until MRSA ruled out. - Fluids and treatment as below Qualifiers: Sepsis type: sepsis due to unspecified organism Qualified Code(s): A41.9 - Sepsis, unspecified organism (3) UTI (urinary tract infection) Current Visit: Yes Status: Acute Assessment and plan: - Urinalysis showed small leukocyte esterase, positive nitrate, positive microscopic white blood cells. Urine culture growing s. aureus - Reported pyuria - Isbell catheter in place with sonja colored urine - Continue ceftriaxone, added vancomycin this morning until sensitivities come back Qualifiers: Urinary tract infection type: acute cystitis Hematuria presence: with hematuria Qualified Code(s): N30.01 - Acute cystitis with hematuria (4) Rhabdomyolysis Current Visit: Yes Status: Acute Assessment and plan: - Patient was reportedly immobile for multiple days, appeared to be covered in feces and urine in the emergency department - CK of 1558, will continue to trend - BUN/creatinine of 25/0.83. GFR of >50, unsure of baseline, improved from admission. No medical history could be obtained from patient - We will continue IV hydration at 150 mL per hour given inability to take oral intake - Adult Protective Services has been contacted in the emergency department Qualifiers: Rhabdomyolysis type: non-traumatic Qualified Code(s): M62.82 - Rhabdomyolysis (5) Hypertension Current Visit: Yes Status: Chronic Assessment and plan: - Most recent blood pressure of 162/85. Blood pressure was 183/81 in emergency department - We will hold medications for now and allow for permissive hypertension setting of acute CVA - Home medications unknown. Will add nitroglycerin paste 0.5 mg for BP control and instruct to hold if BP drops below 140 Qualifiers: Hypertension type: unspecified Qualified Code(s): I10 - Essential (primary ) hypertension (6) DVT prophylaxis Current Visit: Yes Status: Acute Assessment and plan: - Heparin 5000 units twice a day for thrombosis in the setting of CVA - Subjective Interval history: Patient was seen and examined this morning at bedside. She continues to be unable to express herself verbally. She was not able to answer any of the questions asked of her. She was however able to vocalize some saying that she is not cold, but would like her sheets adjusted. - Constitutional Vitals: Temp Pulse Resp BP Pulse Ox 99.2 F 82 18 162/85 95 05/12/17 07:45 05/12/17 07:45 05/12/17 07:45 05/12/17 07:45 05/12/17 07:45 General appearance: Present: morbidly obese Exam: Gen.: Vitals noted. No acute distress. Unable to assess alertness and orientation HEENT: PERRL/EOMI, oropharynx clear, Normocephalic, atraumatic. Moist mucous membranes Neck: Supple. No adenopathy. Cardiac: Irregularly irregular rhythm, no murmur, +S1/S2 Pulmonary: CTA bilaterally, no wheezes, rales or rhonchi, equal chest expansion Abdomen: soft, nontender, BS noted, no guarding MSK: 4/5 strength on upper and lower extremity and left, 5/5 on right. Extremities: no BLE edema, nontender calf, no cyanosis or clubbing Neuro: Unable to assess alertness and orientation, sensory deficits secondary to nonverbal. Internal Medicine: Result - Labs CBC & Chem 7: 05/12/17 08:08 05/12/17 05:43 Labs: BMP 05/12/17 05:43 Sodium 147 H Potassium 3.2 L Chloride 117 H Carbon Dioxide 24 BUN 25 H D Creatinine 0.83 Glucose 92 Calcium 8.4 L - ABG Interpretation ABG results: PT/INR, D-dimer PT 14.5 Seconds (9.4-12.1) H 05/12/17 05:43 - Impressions Impressions Brain MRI 05/11/17 04:03 IMPRESSION: Acute right anterior cerebral artery territory infarct involving the right cingulate gyrus and subcortical and deep white matter of the medial right frontal lobe. No acute intracranial hemorrhage. Moderate chronic small vessel ischemic changes. The findings were sent to the [facility]iology [facility] at 1:25 pm on 05/11/2017to be communicated to a licensed caregiver. D/ / 05/11/2017 13:27:52 Yoan Gallagher MD / Agatha Dukes Interpreting Provider: Yoan Gallagher MD Consult Discharge Plan - Plan Referrals: NONE,PCP [Primary Care Provider] - (more likely go to [facility] AT [facility]) <Vikas Rudd - Last Filed: 05/12/17 17:30> Date of Encounter: 05/12/17 - Assessment and plan (1) CVA (cerebral vascular accident) Current Visit: Yes Status: Acute Qualifiers: CVA mechanism: thrombosis Precerebral and cerebral artery: anterior cerebral artery Laterality of affected vessel: right Qualified Code(s): I63.321 - Cerebral infarction due to thrombosis of right anterior cerebral artery (2) Rhabdomyolysis Current Visit: Yes Status: Acute Qualifiers: Rhabdomyolysis type: non-traumatic Qualified Code(s): M62.82 - Rhabdomyolysis (3) UTI (urinary tract infection) Current Visit: Yes Status: Acute Qualifiers: Urinary tract infection type: acute cystitis Hematuria presence: with hematuria Qualified Code(s): N30.01 - Acute cystitis with hematuria (4) Hypertension Current Visit: Yes Status: Chronic Qualifiers: Hypertension type: unspecified Qualified Code(s): I10 - Essential (primary ) hypertension (5) Morbid obesity with BMI of 45.0-49.9, adult Current Visit: Yes Status: Chronic - Constitutional Vitals: Temp Pulse Resp BP Pulse Ox 99.8 F H 85 18 171/88 94 05/12/17 17:18 05/12/17 17:18 05/12/17 17:18 05/12/17 17:18 05/12/17 17:18 Internal Medicine: Result - Labs CBC & Chem 7: 05/12/17 08:08 05/12/17 05:43 Labs: Short CBC 05/12/17 Range/Units 08:08 WBC 11.3 H (4.3-11.1) K/mcL Hgb 9.2 L D (11.5-15.4) g/dL Hct 30.7 L (35.3-44.9) % Plt Count 264 (140-400) K/mcL Neutrophils # 8.0 (1.6-8.9) K/mcL BMP 05/12/17 05:43 Sodium 147 H Potassium 3.2 L Chloride 117 H Carbon Dioxide 24 BUN 25 H D Creatinine 0.83 Glucose 92 Calcium 8.4 L - ABG Interpretation ABG results: PT/INR, D-dimer PT 14.5 Seconds (9.4-12.1) H 05/12/17 05:43 - Impressions Impressions Head CTA 05/12/17 12:00 IMPRESSION: 1. Abrupt occlusion of the right anterior cerebral artery consistent with the patient's known right anterior cerebral artery territory infarct. 2. Otherwise, no major branch occlusion, significant stenosis or aneurysm identified within the [place]. 3. Approximately 50% short-segment stenosis at the origin of the left internal carotid artery based on NASCET criteria. 4. No other significant stenosis identified within the arterial system of the neck. D/ / 05/12/2017 13:43:31 Yoan Gallagher MD / Agatha Dukes Interpreting Provider: Yoan Gallagher MD Neck CTA 05/12/17 12:00 IMPRESSION: 1. Abrupt occlusion of the right anterior cerebral artery consistent with the patient's known right anterior cerebral artery territory infarct. 2. Otherwise, no major branch occlusion, significant stenosis or aneurysm identified within the [place]. 3. Approximately 50% short-segment stenosis at the origin of the left internal carotid artery based on NASCET criteria. 4. No other significant stenosis identified within the arterial system of the neck. D/ / 05/12/2017 13:43:31 Yoan Gallagher MD / Agatha Dukes Interpreting Provider: Yoan Gallagher MD - Attending Attestation I examined this patient and my medical decision-making was reviewed with the Resident Physician on 05/12/17. I agree with the documented findings, disposition and treatment plan as described except to the extent set forth below. Ms. Franks is currently admitted for acute CVA. She remains moderate to high risk due to potential for worsening neurologic issues. Ms. Franks is more alert at this time. She is thirsty. No fever or chills. Still can't move L leg. Moves L arm some. Exam Alert. Comfortable Heart reg No wheeze Abd soft L leg flaccid Moves L arm slightly I/P 1. Acute CVA 2. HTN Further diagnoses and plan as above.
[2017-05-12 09:41] LABS: Lymphocytes # 1.7 K/mcL (0.6-4.6); Mean Corpuscular Volume 82.1 fL (83.0-100.0)
[2017-05-12] MEDS: Vancomycin 1,750 MG in D5% in Water 500 ML IVPB SCH ×2 (10:08→22:14)
[2017-05-12] MEDS: Nitroglycerin 1 INCH/GM PACKET TP SCH (12:34)
[2017-05-12] MEDS ORDERED: Aminoglycoside Consult 1 EACH MC ONE (16:56)
[2017-05-13 04:35] LABS: Basophils # 0.1 K/mcL (0.0-0.2); Basophils % 0.9 %; Eosinophils # 0.3 K/mcL (0.0-0.6); Eosinophils % 3.4 %; Hematocrit 28.5 % (35.3-44.9); Hemoglobin 9.1 g/dL (11.5-15.4); Immature Granulocytes % 1.6 % (0-4); Lymphocytes # 1.2 K/mcL (0.6-4.6); Mean Corpuscular HGB Conc 31.9 g/dL (31.6-35.5); Mean Corpuscular Hemoglobin 26.8 pg (28.0-33.3); Mean Corpuscular Volume 84.1 fL (83.0-100.0); Mean Platelet Volume 11.5 fL (9.4-12.4); Monocytes # 0.8 K/mcL (0.0-1.3); Monocytes % 8.8 %; Neutrophils # 6.6 K/mcL (1.6-8.9); Platelet Count 215 K/mcL (140-400); Red Blood Count 3.39 M/mcL (3.82-4.97); Red Cell Distribution Width 16.7 % (11.5-14.5); Segmented Neutrophils % 72.3 %
[2017-05-13 05:00] LABS: BUN/Creatinine Ratio 22 (6-26); Blood Urea Nitrogen 18 mg/dL (7-20); Calcium 8.5 mg/dL (8.6-10.8); Carbon Dioxide 21 mEq/L (19-29); Chloride 113 mEq/L (98-109); Creatine Kinase 384 Units/L (29-168); Glucose 97 mg/dL (70-99); Osmolality,Calculated 296 (280-300); Potassium 3.6 mEq/L (3.5-4.5); Sodium 142 mEq/L (136-145); eGFR For African Americans > 60 (> 60); eGFR For Non-African Americans > 60 (> 60)
[2017-05-13] MEDS: Nitroglycerin 1 INCH/GM PACKET TP SCH ×2 (06:02→13:14)
[2017-05-13] MEDS: *HR* Heparin 5,000 UNIT/ML VIAL SQ SCH ×2 (06:03→17:16)
[2017-05-13] MEDS: Pantoprazole 40 MG VIAL IVP SCH (06:03)
[2017-05-13] MEDS: Vancomycin 1,750 MG in D5% in Water 500 ML IVPB SCH (09:57)
[2017-05-13] MEDS: 0.9 % Sodium Chloride 1,000 ML IVC SCH ×2 (09:57→23:05)
--- NOTE | 2017-05-13 10:26 | Carotid Imaging Report ---
Carotid Duplex Patient Name:Ronda Franks Order Number:[id number] Procedure Date:05/11/2017 Date:1945ge:72 yrs Gender:Female Location:[facility] Room #: 2A71 Assistant Child Care Teacher:Mickey Lai RDCS Referring MD:Lul Peace DO supervisor waterworks:None Reading MD:Arsenio Contreras MD Primary Indications:CVA Risk Factors Yes/No None Yes Impressions: The right carotid artery has minimal plaque throughout. The left internal carotid artery has a 60-79% stenosis. Recommendations: Risk factor reduction. Follow-up carotid duplex in 1 year. After imaging the patient returned to their room. Findings Carotid Duplex: Right: The right proximal common carotid artery has a PSV of 79 cm/s and a EDV of 12 cm/s. The right mid common carotid artery has a PSV of 62 cm/s and a EDV of 8 cm/s. The right distal common carotid artery has a PSV of 66 cm/s and a EDV of 11 cm/s. There is nonstenotic plaque in the right bifurcation with a PSV of 64 cm/s and a EDV of 12 cm/s. There is smooth heterogeneous plaque. There is nonstenotic plaque in the right proximal internal carotid artery with a PSV of 53 cm/s and a EDV of 11 cm/s. There is smooth heterogeneous plaque. The right mid internal carotid artery has a PSV of 73 cm/s and a EDV of 21 cm/s. The right distal internal carotid artery has a PSV of 91 cm/s and a EDV of 28 cm/s. The right eca has a PSV of 113 cm/s and a EDV of 14 cm/s. The right vertebral artery has a PSV of 62 cm/s and a EDV of 19 cm/s. Left: The left proximal common carotid artery has a PSV of 112 cm/s and a EDV of 18 cm/s. The left mid common carotid artery has a PSV of 94 cm/s and a EDV of 24 cm/s. The left distal common carotid artery has a PSV of 80 cm/s and a EDV of 15 cm/s. There is nonstenotic plaque in the left bifurcation with a PSV of 66 cm/s and a EDV of 13 cm/s. There is smooth heterogeneous plaque. There is 60-79% stenosis in the left proximal internal carotid artery with a PSV of 171 cm/s and a EDV of 27 cm/s. There is smooth heterogeneous plaque. The left mid internal carotid artery has a PSV of 86 cm/s and a EDV of 13 cm/s. The left distal internal carotid artery has a PSV of 61 cm/s and a EDV of 19 cm/s. The left eca has a PSV of 138 cm/s and a EDV of 16 cm/s. The left vertebral artery has a PSV of 36 cm/s and a EDV of 8 cm/s. Prior Study: No prior study available for comparison. Carotid Results Right PSV EDV Assessment Proximal CCA 79 12 Normal Mid CCA 62 8 Normal Distal CCA 66 11 Normal Bifurcation 64 12 Non Stenotic Plaque Proximal ICA 53 11 Non Stenotic Plaque Mid ICA 73 21 Normal Distal ICA 91 28 Normal ECA 113 14 Normal Vertebral Artery 62 19 Normal Left PSV EDV Assessment Proximal CCA 112 18 Normal Mid CCA 94 24 Normal Distal CCA 80 15 Normal Bifurcation 66 13 Non Stenotic Plaque Proximal ICA 171 27 60-79% stenosis Mid ICA 86 13 Normal Distal ICA 61 19 Normal ECA 138 16 Normal Vertebral Artery 36 8 Normal Ratio's Right ICA/CCA Ratio: 1.47 ICA/CCA Values: 91/62 Left ICA/CCA Ratio: 1.82 ICA/CCA Values: 171/94 Updated by Arsenio Contreras MD on 05/13/2017 10:20:21 AM electronically signed on 05/13/2017 10:20:36 AM with status of Final
[2017-05-13] MEDS: Aspirin Enteric Coated 81 MG Tablet PO SCH (13:07)
--- NOTE | 2017-05-13 14:04 | Internal Med Progress Note ---
<Romeo Singer - Last Filed: 05/13/17 14:00> Date of Encounter: 05/13/17 Time of Encounter: 10:05 - Assessment and plan (1) Acute CVA (cerebrovascular accident) Current Visit: Yes Status: Acute Assessment and plan: - Presents with altered mental status as well as presumed new onset left-sided weakness of upper and lower extremity - MRI performed revealed acute right anterior cerebral artery territory infarct involving the right cingulate gyrus and subcortical and deep white matter of the medial right frontal lobe - Neurology is following, appreciate recommendations - Passed swallow evaluation this morning, we will transition to by mouth meds including statin, aspirin -CTAs his morning reveal abrupt stoppage in right anterior cerebral artery branch A2 in the [place]. - Echocardiogram showed EF of 50-55% without evidence of shunts due to poor image quality - Carotid ultrasound preliminary result appears to show nonstenotic plaque on the right and a 60-79% stenosis of the proximal left proximal ICA - Unsure of timeframe given poor historian, we are unable to give thrombolysis at this time - Physical therapy, occupational therapy, social work, speech therapy, nutritional therapy have all been consulted (2) Sepsis Current Visit: Yes Status: Resolved Assessment and plan: - Presented with heart rate of 103, respiratory rate 20, WBC of 17.8 - Suspected source of urinary tract infection - Lactic acid elevated on admission of 2.4 Possibly due to hypoperfusion. - Blood cultures no growth thus far, urine culture growing pansensitive Staphylococcus aureus. We will transition to oral Cipro, discontinue vancomycin and Rocephin - Fluids and treatment as below Qualifiers: Sepsis type: sepsis due to unspecified organism Qualified Code(s): A41.9 - Sepsis, unspecified organism (3) UTI (urinary tract infection) Current Visit: Yes Status: Acute Assessment and plan: - Urinalysis showed small leukocyte esterase, positive nitrate, positive microscopic white blood cells. Urine culture growing pansensitive s. aureus - Reported pyuria - Isbell catheter in place with sonja colored urine - Transition to oral Cipro, discontinue vancomycin and Rocephin Qualifiers: Urinary tract infection type: acute cystitis Hematuria presence: with hematuria Qualified Code(s): N30.01 - Acute cystitis with hematuria (4) Rhabdomyolysis Current Visit: Yes Status: Acute Assessment and plan: - Patient was reportedly immobile for multiple days, appeared to be covered in feces and urine in the emergency department - CK of 1558, improved today to 384. - BUN/creatinine of 18/0.83 GFR of >60, unsure of baseline, improved from admission. No medical history could be obtained from patient - Adult Protective Services has been contacted in the emergency department Qualifiers: Rhabdomyolysis type: non-traumatic Qualified Code(s): M62.82 - Rhabdomyolysis (5) Hypertension Current Visit: Yes Status: Chronic Assessment and plan: - Most recent blood pressure of 160/79. Blood pressure was 183/81 in emergency department - We will begin to bring down blood pressure cautiously and slowly. - Will continue nitroglycerin paste 0.5 mg for BP control and instruct to hold if BP drops below 140 - Home medications unknown Qualifiers: Hypertension type: unspecified Qualified Code(s): I10 - Essential (primary ) hypertension (6) DVT prophylaxis Current Visit: Yes Status: Acute Assessment and plan: - Heparin 5000 units twice a day for thrombosis in the setting of CVA - Time Spent With Patient 25 - 35 minutes - Subjective Interval history: Patient was seen and examined this morning at bedside. Her vocalization is much improved this morning. She is able to answer approximately 50% of questions asked. She states she is not in any pain, denies any fevers and chills. She is still not responsive when asked about her proceeding circumstances. She does not express any concerns at this time. - Constitutional Vitals: Temp Pulse Resp BP Pulse Ox 98.7 F 80 22 182/85 97 05/13/17 10:56 05/13/17 10:56 05/13/17 10:56 05/13/17 10:56 05/13/17 10:56 General appearance: Present: morbidly obese Exam: Gen.: Vitals noted. No acute distress. AOx3. Morbidly obese HEENT: PERRL/EOMI, oropharynx clear, Normocephalic, atraumatic Neck: Supple. No adenopathy. Cardiac: RRR, no murmur, +S1/S2 Pulmonary: CTA bilaterally, no wheezes, rales or rhonchi, equal chest expansion Abdomen: soft, nontender, BS noted, no guarding MSK: Muscle strength 5/5 on right side, 4/5 on left upper extremity, no movement on left lower extremity, however and uncertain if patient is cooperating Extremities: no BLE edema, nontender calf, no cyanosis or clubbing Neuro: A&Ox3, unable to determine focal deficits Internal Medicine: Result - Labs CBC & Chem 7: 05/13/17 04:26 05/13/17 04:26 Labs: Short CBC 05/13/17 Range/Units 04:26 WBC 9.2 (4.3-11.1) K/mcL Hgb 9.1 L (11.5-15.4) g/dL Hct 28.5 L (35.3-44.9) % Plt Count 215 (140-400) K/mcL Neutrophils # 6.6 (1.6-8.9) K/mcL BMP 05/13/17 04:26 Sodium 142 Potassium 3.6 Chloride 113 H Carbon Dioxide 21 BUN 18 Creatinine 0.83 Glucose 97 Calcium 8.5 L - ABG Interpretation ABG results: PT/INR, D-dimer PT 14.5 Seconds (9.4-12.1) H 05/12/17 05:43 - Impressions Impressions Head CTA 05/12/17 12:00 IMPRESSION: 1. Abrupt occlusion of the right anterior cerebral artery consistent with the patient's known right anterior cerebral artery territory infarct. 2. Otherwise, no major branch occlusion, significant stenosis or aneurysm identified within the [place]. 3. Approximately 50% short-segment stenosis at the origin of the left internal carotid artery based on NASCET criteria. 4. No other significant stenosis identified within the arterial system of the neck. 5. Indeterminate 1.8 cm nodule within the left lobe of the thyroid gland. Consider thyroid ultrasound for further evaluation. D/ / 05/12/2017 13:43:31 Yoan Gallagher MD / Agatha Dukes Interpreting Provider: Yoan Gallagher MD Neck CTA 05/12/17 12:00 IMPRESSION: 1. Abrupt occlusion of the right anterior cerebral artery consistent with the patient's known right anterior cerebral artery territory infarct. 2. Otherwise, no major branch occlusion, significant stenosis or aneurysm identified within the [place]. 3. Approximately 50% short-segment stenosis at the origin of the left internal carotid artery based on NASCET criteria. 4. No other significant stenosis identified within the arterial system of the neck. 5. Indeterminate 1.8 cm nodule within the left lobe of the thyroid gland. Consider thyroid ultrasound for further evaluation. D/ / 05/12/2017 13:43:31 Yoan Gallagher MD / Agatha Dukes Interpreting Provider: Yoan Gallagher MD Consult Discharge Plan - Plan Referrals: NONE,PCP [Primary Care Provider] - ([facility]) <Vikas Rudd - Last Filed: 05/13/17 15:52> Date of Encounter: 05/13/17 - Assessment and plan (1) CVA (cerebral vascular accident) Current Visit: Yes Status: Acute Qualifiers: CVA mechanism: thrombosis Precerebral and cerebral artery: anterior cerebral artery Laterality of affected vessel: right Qualified Code(s): I63.321 - Cerebral infarction due to thrombosis of right anterior cerebral artery (2) Rhabdomyolysis Current Visit: Yes Status: Acute Qualifiers: Rhabdomyolysis type: non-traumatic Qualified Code(s): M62.82 - Rhabdomyolysis (3) Sepsis Current Visit: Yes Status: Resolved Qualifiers: Sepsis type: methicillin susceptible Staphylococcus aureus Qualified Code(s ): A41.01 - Sepsis due to Methicillin susceptible Staphylococcus aureus (4) UTI (urinary tract infection) Current Visit: Yes Status: Acute Qualifiers: Urinary tract infection type: acute cystitis Hematuria presence: with hematuria Qualified Code(s): N30.01 - Acute cystitis with hematuria (5) Hypertension Current Visit: Yes Status: Chronic Qualifiers: Hypertension type: unspecified Qualified Code(s): I10 - Essential (primary ) hypertension (6) Morbid obesity with BMI of 45.0-49.9, adult Current Visit: Yes Status: Chronic - Constitutional Vitals: Temp Pulse Resp BP Pulse Ox 98.2 F 77 16 164/80 95 05/13/17 15:38 05/13/17 15:38 05/13/17 15:38 05/13/17 15:38 05/13/17 15:38 Internal Medicine: Result - Labs CBC & Chem 7: 05/13/17 04:26 05/13/17 04:26 Labs: Short CBC 05/13/17 Range/Units 04:26 WBC 9.2 (4.3-11.1) K/mcL Hgb 9.1 L (11.5-15.4) g/dL Hct 28.5 L (35.3-44.9) % Plt Count 215 (140-400) K/mcL Neutrophils # 6.6 (1.6-8.9) K/mcL BMP 05/13/17 04:26 Sodium 142 Potassium 3.6 Chloride 113 H Carbon Dioxide 21 BUN 18 Creatinine 0.83 Glucose 97 Calcium 8.5 L - ABG Interpretation ABG results: PT/INR, D-dimer PT 14.5 Seconds (9.4-12.1) H 05/12/17 05:43 - Impressions Impressions Head CTA 05/12/17 12:00 IMPRESSION: 1. Abrupt occlusion of the right anterior cerebral artery consistent with the patient's known right anterior cerebral artery territory infarct. 2. Otherwise, no major branch occlusion, significant stenosis or aneurysm identified within the [place]. 3. Approximately 50% short-segment stenosis at the origin of the left internal carotid artery based on NASCET criteria. 4. No other significant stenosis identified within the arterial system of the neck. 5. Indeterminate 1.8 cm nodule within the left lobe of the thyroid gland. Consider thyroid ultrasound for further evaluation. D/ / 05/12/2017 13:43:31 Yoan Gallagher MD / Agatha Dukes Interpreting Provider: Yoan Gallagher MD Neck CTA 05/12/17 12:00 IMPRESSION: 1. Abrupt occlusion of the right anterior cerebral artery consistent with the patient's known right anterior cerebral artery territory infarct. 2. Otherwise, no major branch occlusion, significant stenosis or aneurysm identified within the [place]. 3. Approximately 50% short-segment stenosis at the origin of the left internal carotid artery based on NASCET criteria. 4. No other significant stenosis identified within the arterial system of the neck. 5. Indeterminate 1.8 cm nodule within the left lobe of the thyroid gland. Consider thyroid ultrasound for further evaluation. D/ / 05/12/2017 13:43:31 Yoan Gallagher MD / Agatha Dukes Interpreting Provider: Yoan Gallagher MD - Attending Attestation I examined this patient and my medical decision-making was reviewed with the Resident Physician on 05/13/17. I agree with the documented findings, disposition and treatment plan as described except to the extent set forth below. Ms Franks is currently admitted for acute CVA. She remains moderate to high risk due to potential for worsening neurologic status. Ms Franks is continuing to slowly improve. No fever or chills. No CP or SOB. Passed swallow eval and has a diet. Still not moving L leg much. Exam Alert. Comfortable Speech somewhat better today Mucus membranes dry Heart reg No wheeze Abd soft L leg flaccid I/P 1. Acute CVA 2. HTN Further diagnoses and plan as above.
[2017-05-13] MEDS: amLODIPine 5 MG TABLET PO SCH (17:15)
--- NOTE | 2017-05-13 17:15 | Electrocardiograph Report ---
[address] [place], [place] [address] Test Date: 2017-05-10 Pat Name: Ronda Franks Department: 102 Room: 2A71 Gender: F Rn Camp: [place] : 1945 Requested By: Jovan Corona Order Number: [id number] Reading MD: Robin Wilde MD Measurements Intervals [place] Rate: 104 P: 53 HI: 175 QRS: -34 QRSD: 110 T: 86 QT: 352 QTc: 413 Interpretive Statements SINUS TACHYCARDIA WITH OCCASIONAL SUPRAVENTRICULAR PREMATURE COMPLEXES MARKED LEFT AXIS DEVIATION LEFT VENTRICULAR HYPERTROPHY AND ST-T CHANGE Electronically Signed On 05-13-2017 17:13:45 EDT by Robin Wilde MD
--- NOTE | 2017-05-13 19:09 | Neurology Progress Note ---
Date of Encounter: 05/13/17 Time of Encounter: 19:07 Assessment and Plan (1) Acute CVA (cerebrovascular accident) Current Visit: Yes Status: Acute Ischemic infarct secondary to right MILAGRO occlusion. Likely secondary intracranial atherosclerosis. Has left ICA 50% stenosis, needs annual carotid artery duplex monitoring. Continue aspirin 81mg daily and statin therapy for hyperlipidemia. May benefit from PT/OT. Patient advised to follow up with PCP and an outpatient sleep study should be done to assess untreated CHUN. Weight loss encouraged. Subjective Principal diagnosis: CVA Interval history: Patient seen and examined. mental status is slightly better. Still has significant left hemiparesis and speech difficulty. Language content is intact. Able to repeat. Stroke work up is essentially complete. CTA of neck and brain confirmed right MILAGRO occlusion. Echocardiography showed LVEF 50-55%, no significant valvular dysfunction. Objective - Constitutional Vitals: Temp Pulse Resp BP Pulse Ox 98.9 F 92 19 161/86 95 05/13/17 18:42 05/13/17 18:42 05/13/17 18:42 05/13/17 18:42 05/13/17 18:42 - Neurological Exam Sensorimotor examination: Present: other (Unable to assess due to speech difficulty) Motor Examination: Present: other (Left paresis noted, leg more than the arm) Motor examination - left side: 4/5: deltoids, biceps, triceps, wrist flexion, wrist extension, hip flexors, roll tender, quadriceps, tibialis Anterior, toe extension (EHL) Sensation intact: Present: other (Unable to assess due to difficulty in her speech) Reflex and gait examination: other (None) Mental Status Examination: Present: awake, alert, follows commands appropriately , answers questions appropriately, opens eyes to voice, opens eyes to noxious stimulation, makes eye contact, follows simple commands, localizes noxious stimulation, expressive aphasia Cranial nerve examination: Present: PERRL, EOMI, visual sanchez intact, corneal reflexes brisk symmetrically, sensory to face intact, mastication intact, no facial asymmetry is present, no dysarthria, hearing is intact symmetrically, gag reflex intact, flexes SCM and trapezius muscles symmetrically with full power, tongue protrudes midline Results - Laboratory Findings CBC and BMP: 05/13/17 04:26 05/13/17 04:26 Abnormal lab findings: Abnormal lab results RBC 3.39 M/mcL (3.82-4.97) L 05/13/17 04:26 Hgb 9.1 g/dL (11.5-15.4) L 05/13/17 04:26 Hct 28.5 % (35.3-44.9) L 05/13/17 04:26 MCH 26.8 pg (28.0-33.3) L 05/13/17 04:26 RDW 16.7 % (11.5-14.5) H 05/13/17 04:26 PT 14.5 Seconds (9.4-12.1) H 05/12/17 05:43 APTT 25.4 Seconds (26.0-36.0) L 05/11/17 01:23 Chloride 113 mEq/L (98-109) H 05/13/17 04:26 POC Glucose 111 (58-89) H 05/13/17 15:31 Lactic Acid 2.4 mmol/L (0.5-2.2) H 05/11/17 03:24 Calcium 8.5 mg/dL (8.6-10.8) L 05/13/17 04:26 AST 49 Units/L (5-34) H 05/11/17 01:23 Creatine Kinase 384 Units/L (29-168) H 05/13/17 04:26 Troponin I 0.04 ng/mL (0-0.03) H* 05/11/17 01:05 Globulin 4.5 g/dL (2.4-3.5) H 05/11/17 01:23 Albumin/Globulin Ratio 0.8 (1.1-2.2) L 05/11/17 01:23 Cholesterol 208 mg/dL (< 200) H 05/11/17 Unknown LDL Cholesterol, Calc 137 mg/dL (0-99) H 05/11/17 Unknown Urine Clarity Cloudy (Clear) A 05/10/17 02:46 Ur Specific [place] 1.028 (1.010-1.025) H 05/10/17 02:46 Urine Ketones Trace mg/dL (Negative) H 05/10/17 02:46 Urine Blood Trace (Negative) H 05/10/17 02:46 Urine Nitrite Positive (Negative) A 05/10/17 02:46 Ur Leukocyte Esterase Small (Negative) H 05/10/17 02:46 Urine Microscopic WBC 5-15 per hpf (0-3) H 05/10/17 02:46 Ur Culture Indicated? YES (NO) A 05/10/17 02:46 Consult Discharge Plan - Plan Referrals: NONE,PCP [Primary Care Provider] - (more likely go to ECF)
[2017-05-14 04:50] LABS: BUN/Creatinine Ratio 21 (6-26); Blood Urea Nitrogen 16 mg/dL (7-20); Calcium 8.5 mg/dL (8.6-10.8); Carbon Dioxide 19 mEq/L (19-29); Chloride 114 mEq/L (98-109); Creatine Kinase 206 Units/L (29-168); Glucose 100 mg/dL (70-99); Osmolality,Calculated 297 (280-300); Potassium 3.3 mEq/L (3.5-4.5); Sodium 143 mEq/L (136-145); eGFR For African Americans > 60 (> 60); eGFR For Non-African Americans > 60 (> 60)
[2017-05-14] MEDS: Nitroglycerin 1 INCH/GM PACKET TP SCH ×2 (06:51→12:04)
[2017-05-14] MEDS: *HR* Heparin 5,000 UNIT/ML VIAL SQ SCH ×2 (06:51→16:34)
[2017-05-14 07:16] LABS: Hematocrit 27.7 % (35.3-44.9); Hemoglobin 9.4 g/dL (11.5-15.4); Immature Platelets 3.6 % (1.1-6.1); Mean Corpuscular HGB Conc 33.9 g/dL (31.6-35.5); Mean Corpuscular Hemoglobin 29.3 pg (28.0-33.3); Mean Corpuscular Volume 86.3 fL (83.0-100.0); Mean Platelet Volume 10.7 fL (9.4-12.4); Red Blood Count 3.21 M/mcL (3.82-4.97); Red Cell Distribution Width 17.6 % (11.5-14.5)
[2017-05-14] MEDS: amLODIPine 5 MG TABLET PO SCH (08:32)
[2017-05-14] MEDS: Aspirin Enteric Coated 81 MG Tablet PO SCH (08:32)
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
[2017-05-14 11:51] VITALS: BP 162/86
--- NOTE | 2017-05-14 12:44 | Discharge Summary ---
Date of Encounter: 05/14/17 Time of Encounter: 12:42 - Discharge Diagnosis (1) Acute CVA (cerebrovascular accident) Priority: Primary Status: Acute Comments: With residual left-sided hemiplegia (2) UTI (urinary tract infection) Priority: Secondary Status: Acute Comments: Growing Staphylococcus aureus pansensitive Qualifiers: Urinary tract infection type: acute cystitis Hematuria presence: with hematuria Qualified Code(s): N30.01 - Acute cystitis with hematuria (3) Rhabdomyolysis Priority: Secondary Status: Acute Qualifiers: Rhabdomyolysis type: non-traumatic Qualified Code(s): M62.82 - Rhabdomyolysis (4) Hypertension Priority: Secondary Status: Chronic Qualifiers: Hypertension type: unspecified Qualified Code(s): I10 - Essential (primary ) hypertension (5) Sepsis Priority: Secondary Status: Resolved Qualifiers: Sepsis type: methicillin susceptible Staphylococcus aureus Qualified Code(s ): A41.01 - Sepsis due to Methicillin susceptible Staphylococcus aureus (6) Renal insufficiency Priority: Secondary Status: Acute (7) Morbid obesity with BMI of 45.0-49.9, adult Priority: Secondary Status: Chronic (8) Hypokalemia Priority: Secondary Status: Acute - Discharge Medications Prescriptions: Ciprofloxacin [Cipro] 500 mg PO Q12HR #6 tab amLODIPine [Norvasc] 10 mg PO DAILY #30 tab Atorvastatin [Lipitor] 40 mg PO HS #30 tab Lisinopril [Zestril] 20 mg PO DAILY #30 tablet Home Medications: Aspirin Enteric Coated [Aspirin EC] 81 mg PO DAILY 05/14/17 [Rx] Atorvastatin [Lipitor] 40 mg PO HS #30 tab 05/14/17 [Rx] Ciprofloxacin [Cipro] 500 mg PO Q12HR #6 tab 05/14/17 [Rx] Docusate [Colace] 100 mg PO BID PRN 05/14/17 [Rx] Lisinopril [Zestril] 20 mg PO DAILY #30 tablet 05/14/17 [Rx] amLODIPine [Norvasc] 10 mg PO DAILY #30 tab 05/14/17 [Rx] Allergies/Adverse Reactions: 3 Allergy/AdvReac Type Severity Reaction Status Date / Time No Known Allergies Allergy Verified 05/11/17 00:47 Procedures/tests Complete & Pending: Procedures Performed prior 72 hours Category Date Time Status CT angio neck [CT] Stat Cat Scan 05/12/17 12:00 Completed CTA Head [CT angio head] [CT] Stat Cat Scan 05/12/17 12:00 Completed Date of admission: 05/11/17 03:52 Primary care physician: PCP NONE Consults: 05/11/17 04:31 Consult to Neurology [CONS] Routine Consulting Provider: [facility] Reason for Consult: Concern for acute CVA Call Completed: No 05/11/17 06:03 Consult to Nutrition [CONS] Routine Comment: Consulting Provider: NUTRITION Reason for Dietary Consult: MST Score - Patient Status Disposition: Transfer SNF Condition: Good Overall status at discharge: patient is progressing back to baseline - Discharge Instructions Follow Up With: NONE,PCP [Primary Care Provider] - ([facility] go to [facility]) Forms: ED Satisfaction Letter, Work/School Release Additional Instructions: Follow-up with primary care physician within the next 7 days. Continue aspirin and statin. Follow up with neurology within the next 4 weeks. Complete 3 more days of ciprofloxacin - Diet and Activity Activity: increase activity as tolerated Diet: low fat, low cholesterol Hospital course: Ms. Franks is a 72 year old female with no prior past medical history. - Presented with altered mental status , developed new onset left-sided weakness of upper and lower extremity - MRI performed revealed acute right anterior cerebral artery territory infarct involving the right cingulate gyrus and subcortical and deep white matter of the medial right frontal lobe - Neurology recommended aspirin and statin - Passed swallow evaluation 05/13, statin, aspirin -CTA 05/13 reveal abrupt stoppage in right anterior cerebral artery branch A2 in the [place]. - Echocardiogram showed EF of 50-55% without evidence of shunts due to poor image quality - Carotid ultrasound preliminary result appears to show nonstenotic plaque on the right and a 60-79% stenosis of the proximal left proximal ICA CK of 1558, improved to 206. HR of 103, respiratory rate 20, WBC of 17.8. Suspected source of urinary tract infection. Lactic acid was elevated on admission of 2.4 Possibly due to hypoperfusion. - Blood cultures no growth x 3 days, urine culture growing pansensitive Staphylococcus aureus. Transitioned to oral Cipro, discontinued vancomycin and Rocephin Bp remained elevated, amlodipine was started but did not control her BP completely. Will start lisinopril. K was 3.3 , will be repleted prior to discharge. Stable to be discharged. Left side remains weak - Time Spent with Patient Total time spent providing and/or coordinating discharge services: Greater than 30 minutes (40 minutes) - Constitutional Vitals: Temp Pulse Resp BP Pulse Ox 98.0 F 92 18 162/86 93 05/14/17 11:49 05/14/17 11:49 05/14/17 11:49 05/14/17 11:49 05/14/17 11:49 General appearance: Present: A&O X 3, morbidly obese - Head Head exam: Present: atraumatic, normocephalic - Eye Eye exam: Present: PERRL, conjuntiva pink, sclera anicteric Pupils: Present: PERRL - Neck Neck exam general surgery: Present: supple, trachea midline. Absent: lymphadenopathy - Respiratory Respiratory exam: Present: CTAB. Absent: accessory muscle use, rales, rhonchi, wheezes - Cardiovascular Cardiovascular exam: Present: RRR, +S1, +S2. Absent: diastolic murmur, gallop, rubs, systolic murmur - GI/Abdominal GI/Abdominal exam: Present: normal bowel sounds, soft, no peritoneal signs. Absent: distended, tenderness - Extremities Exam Extremities exam: Present: warm, radial pulses palpable and symmetrical. Absent : calf tenderness, cyanotic, pedal edema - Neurological Exam Neurological exam: Present: CN II-XII intact, oriented X3. Absent: no focal deficits (Left-sided hemiplegia 2 out of 6 strength in left lower extremity 3 out of 6 strength in left upper extremity), pronater drift, facial droop, speech deficit - Skin Skin exam: Present: dry, intact
[2017-05-14] MEDS: 0.9 % Sodium Chloride 1,000 ML IVC SCH (12:56)
--- NOTE | 2017-05-14 12:57 | Physician Discharge Referral ---
ExtendedCare Referral Info Provider in Charge after Transfer: PCP Institutional Level of Care: Skilled - Diagnosis (1) Acute CVA (cerebrovascular accident) Status: Acute (2) UTI (urinary tract infection) Status: Acute (3) Rhabdomyolysis Status: Acute (4) Hypertension Status: Chronic (5) Sepsis Status: Resolved (6) Renal insufficiency Status: Acute (7) Morbid obesity with BMI of 45.0-49.9, adult Status: Chronic (8) Hypokalemia Status: Acute - Transfer Medications Prescriptions: Ciprofloxacin [Cipro] 500 mg PO Q12HR #6 tab amLODIPine [Norvasc] 10 mg PO DAILY #30 tab Atorvastatin [Lipitor] 40 mg PO HS #30 tab Lisinopril [Zestril] 20 mg PO DAILY #30 tablet Home Medications: Aspirin Enteric Coated [Aspirin EC] 81 mg PO DAILY 05/14/17 [Rx] Atorvastatin [Lipitor] 40 mg PO HS #30 tab 05/14/17 [Rx] Ciprofloxacin [Cipro] 500 mg PO Q12HR #6 tab 05/14/17 [Rx] Docusate [Colace] 100 mg PO BID PRN 05/14/17 [Rx] Lisinopril [Zestril] 20 mg PO DAILY #30 tablet 05/14/17 [Rx] amLODIPine [Norvasc] 10 mg PO DAILY #30 tab 05/14/17 [Rx] Allergies/Adverse Reactions: 3 Allergy/AdvReac Type Severity Reaction Status Date / Time No Known Allergies Allergy Verified 05/11/17 00:47 - Respiratory Orders Smoking Cessation: Smoking cessation has been advised. For more information, call the [place] Tobacco Quit Line at 3-348-FASM-NOW. - Advance Directives Code Status: Full Code - Diet Orders No Added Salt (MARLENY) House Supplement per Dietary: Follow-up with primary care physician within the next 7 days. Continue aspirin and statin. Follow up with neurology within the next 4 weeks. Complete 3 more days of ciprofloxacin CERTIFICATION: I certify that the transfer of the above named patient to an Extended Care Facility is necessary for the continuing treatment of the diagnosis listed. The above information is true and accurate reflection of patient's current condition. Confidential - Redisclosure prohibited without a patient's written consent.
[2017-05-14] MEDS ORDERED: Lisinopril 20 MG TABLET PO SCH (13:00)
== END 2017-05-14 16:57 | DRG 871 ==
LOC: 2ANU 22:29 → EMEROO 22:29 → SUATTDRO 05-11 03:52 → 2ANU 05-11 04:33
PROVIDERS: ADMIT Internal Medicine; ATTEND Internal Medicine